=== PATIENT | female | born 1940 | race Caucasian/White ===

== ENCOUNTER 2017-03-03 05:29 | Day surgery (SDC) | payer MEDICARE, OTHER ==
[2017-03-03] VITALS (25 sets, daily range): BP systolic 116–184; BP diastolic 56–105; PULSE 52–65; RESP 12–21; TEMP 95.5–98.6; O2SAT 90–99; Ht 162.6 cm; Wt 93.0 kg
[~2017-03-03] VITALS: Ht 162.6 cm; Wt 93.0 kg
[~2017-03-03 05:29] MED LIST: ATEN100T PO; BUSP10TA3 PO; ENAL5TAB PO; ESOM20CA PO; HYDR25TA PO; INSU100I3 SQ; INSU3INS3 SQ; MV-M1TAB18 PO; PARO-38 PO; SIMV40TA5 PO; TRAZ-170 PO; UBID100C10 PO
--- OUTSIDE RECORDS SUMMARY | 2017-03-03 05:33 | XMS REPORT | CCD ---
Author Author HERMANN DUKE Organization Unknown Address [address], [place] [address] Phone 0 Care Team Providers Care Log Snaker Name Role Phone KIMMY PACHECO, W Attending Physician [phone] Vital Signs Unknown or Not Available. Allergies Allergy Code Allergy Type Reaction Status No Known Drug Allergies 0 No known drug allergies Active Procedures Unknown or Not Available. History of Immunizations Unknown or Not Available. Problems Unknown or Not Available. Results HGB A1C Test Name Code Test Result Test Units Test Date/Time HGB A1C 7.9000 % 05/07/2014 14:05 eAG 180.0000 mg/dL 05/07/2014 14:05 Medications Unknown or Not Available. Medications Administered Unknown or Not Available. Encounters Unknown or Not Available. Social History Smoking Status Code Start Date End Date Never smoker [id number] Patient Decision Aids Unknown or Not Available. Discharge Instructions You were admitted to [facility] on 05/07/2014. You were discharged from [facility] on 05/07/2014. Should you have any questions prior to discharge, please contact a member of your healthcare team. If you have left the hospital and have any questions, please contact your primary care physician. Chief Complaint and Reason For Visit Chief Complaint Date of Onset LAB Function Status Unknown or Not Available. Plan of Care Unknown or Not Available. Referral/Transition of Care Unknown or Not Available.
--- OUTSIDE RECORDS SUMMARY | 2017-03-03 05:33 | XMS REPORT ---
Author Author Srinivasa Lindo Organization [employer] Address Unknown Phone Unavailable Care Team Providers Care Hollow Handle Knife Assembler Name Role Phone Srinivasa Lindo CP Unavailable Allergies No Known Allergies Problems No Known Problems Medications No Known Medications Results No Known Results Summary Purpose [employer] Submission
--- OUTSIDE RECORDS SUMMARY | 2017-03-03 05:33 | XMS REPORT | CCD ---
Author Author HILARIO CORADO Organization Unknown Address [address], [place] [address] Phone 0 Care Team Providers Care Bus Driver Supervisor Name Role Phone Arnold VILLALOBOS Attending Physician 0 Arnold VILLALOBOS Primary Surgeon 0 Vital Signs Vital Sign Value Unit Height 20.2 in Weight Measured 190.5 lbs BMI (Body Mass Index) 28.24 kg/m^2 BSA (Body Surface Area) 1.11 m^2 Allergies Allergy Code Allergy Type Reaction Status No Known Drug Allergies 0 No known drug allergies Active Procedures Unknown. History of Immunizations Unknown. Problems Unknown. Results TROPONIN I (QUANT) Test Name Code Test Result Test Units Test Date/Time TROPONIN I 0.0200 ng /mL 01/05/2014 19:10 Medications Unknown. Medications Administered Unknown. Encounters Unknown. Social History Smoking Status Code Start Date End Date Never smoker [id number] Patient Decision Aids Unknown. Instructions You were admitted to [facility] on 01/05/2014. You had the following tests done: TROPONIN I You were discharged from [facility] on 01/05/2014. Should you have any questions prior to discharge, please contact a member of your healthcare team. If you have left the hospital and have any questions, please contact your primary care physician. Chief Complaint and Reason For Visit Chief Complaint Date of Onset FEELS STRANGE Function Status Unknown. Plan of Care Unknown. Referral/Transition of Care Unknown.
--- OUTSIDE RECORDS SUMMARY | 2017-03-03 05:33 | XMS REPORT | CCD ---
Author Author ALBAN GAVIN Organization Unknown Address [address], [place] [address] Phone 0 Care Team Providers Care Armature Rewinder Name Role Phone Suze ONEAL MD Attending Physician [phone] Vital Signs Unknown or Not Available. Allergies Allergy Code Allergy Type Reaction Status No Known Drug Allergies 0 No known drug allergies Active Procedures Unknown or Not Available. History of Immunizations Unknown or Not Available. Problems Unknown or Not Available. Results INFLUENZA A & B, MOLECULAR - Collect Date/Time: 01/08/2017 09:50 Test Name Code Test Result Test Units Test Ref Range INFLUENZA A NEGATIVE N/A NORMAL: NEGATIVE INFLUENZA B NEGATIVE N/A NORMAL: NEGATIVE Active Medications Unknown or Not Available. Medications Administered During Visit Unknown or Not Available. Encounters Unknown or Not Available. Social History Smoking Status Code Start Date End Date Never smoker [id number] Patient Decision Aids Unknown or Not Available. Discharge Instructions You were admitted to [facility] on 01/08/2017 09:27 You had the following tests done: INFLUENZA A & B, MOLECULAR You were discharged from [facility] on 01/08/2017 09:27 Should you have any questions prior to discharge, please contact a member of your healthcare team. If you have left the hospital and have any questions, please contact your primary care physician. Chief Complaint and Reason For Visit Chief Complaint Date of Onset HEAD COLD Function Status Unknown or Not Available. Plan of Care Unknown or Not Available. Referral/Transition of Care Unknown or Not Available.
--- OUTSIDE RECORDS SUMMARY | 2017-03-03 05:33 | XMS REPORT | CCD ---
Author Author HERMANN DUKE Organization Unknown Address [address] [place], [place] [address] Phone 0 Care Team Providers Care Instrument Installer Name Role Phone ALANNAH GUSTAFSON Attending Physician 0 Vital Signs Unknown or Not Available. Allergies Allergy Code Allergy Type Reaction Status No Known Drug Allergies 0 No known drug allergies Active Procedures Unknown or Not Available. History of Immunizations Unknown or Not Available. Problems Unknown or Not Available. Results HGB A1C - Collect Date/Time: 07/10/2015 10:09 Test Name Code Test Result Test Units Test Ref Range HGB A1C 7.7 % L=4.5 H=6.2 eAG 174 mg/dL Active Medications Unknown or Not Available. Medications Administered During Visit Unknown or Not Available. Encounters Encounter Diagnosis Diagnosis Code Start Date DIABETES W O COMP TYPE 2 UNSPECIFIE 00084 07/10/2015 Social History Smoking Status Code Start Date End Date Never smoker [id number] Patient Decision Aids Unknown or Not Available. Discharge Instructions You were admitted to [facility] on 07/10/2015 with a principal diagnosis of DIABETES W O COMP TYPE 2 UNSPECIFIE. You were discharged from [facility] on 07/10/2015. Should you have any questions prior to discharge, please contact a member of your healthcare team. If you have left the hospital and have any questions, please contact your primary care physician. Chief Complaint and Reason For Visit Unknown or Not Available. Function Status Unknown or Not Available. Plan of Care Unknown or Not Available. Referral/Transition of Care Unknown or Not Available.
--- OUTSIDE RECORDS SUMMARY | 2017-03-03 05:33 | XMS REPORT | CCD ---
Author Author ALBAN GAVIN Organization Unknown Address [address] [place], [place] [address] Phone 0 Care Team Providers Care Natural Remedy Consultant Name Role Phone DAYAN DOWNING Attending Physician [phone] Vital Signs Unknown or Not Available. Allergies Allergy Code Allergy Type Reaction Status No Known Drug Allergies 0 No known drug allergies Active Procedures Unknown or Not Available. History of Immunizations Unknown or Not Available. Problems Unknown or Not Available. Results BASIC METABOLIC - Collect Date/Time: 01/10/2017 15:13 Test Name Code Test Result Test Units Test Ref Range GLUCOSE 102 mg/dL L=70 H=110 BUN 22 mg/dL L=7 H=18 CREATININE 1.16 mg/ dL L=0.60 H=1.30 AGE 76 YEARS GFR 45.5 L=60.0 H=120 SODIUM 139 mmol/L L=136 H=145 POTASSIUM 4.5 mmol/ L L=3.5 H=5.1 CHLORIDE 103 mmol/L L=98 H=107 CO2 27 mmol/L L=21 H=32 CALCIUM 9.2 mg/dL L=8.5 H=10.1 HGB A1C - Collect Date/Time: 01/10/2017 15:13 Test Name Code Test Result Test Units Test Ref Range HGB A1C 6.8 % L=4.5 H=6.2 eAG 148 mg/dL Active Medications Unknown or Not Available. Medications Administered During Visit Unknown or Not Available. Encounters Unknown or Not Available. Social History Smoking Status Code Start Date End Date Never smoker [id number] Patient Decision Aids Unknown or Not Available. Discharge Instructions You were admitted to [facility] on 01/10/2017 15:06 You had the following tests done: BASIC METABOLIC HGB A1C You were discharged from [facility] on 01/10/2017 15:06 Should you have any questions prior to [...]
--- OUTSIDE RECORDS SUMMARY | 2017-03-03 05:33 | XMS REPORT ---
Author Author Srinivasa Lindo Organization [employer] Address Unknown Phone Unavailable Care Team Providers Care Toll Gate Keeper Name Role Phone Srinivasa Lindo CP Unavailable Allergies, Adverse Reactions, Alerts Substance Reaction Event Type N.K.D.A. Info Not Available Non Drug Allergy Problems Problem Type Condition Code Onset Dates Condition Status Assessment Encounter for dental examination and cleaning without abnormal findings Z01.20 Active Medications Medication Code System Code Instructions Start Date End Date Status Dosage Aspirin [facility] [address]-76 not defined Lantus [facility] [address]-60 not defined NovoLog [facility] [address]-41 not defined Vitamin D3 [facility] 65[address] not defined Hydrochlorothiazide [facility] [address]-19 not defined Atenolol [facility] [address]-39 not defined Enalapril Maleate [facility] [address]-71 not defined Paroxetine HCl [facility] [address]-97 not defined Simvastatin [facility] [address]-32 not defined Procedures Procedure Coding System Code Date INTRAORL - CMPL SERIES CODE 41322 CPT-4 D0210 Aug 09, 2016 COMP ORAL EVALUATION - NEW/EST PT CPT-4 D0150 Aug 09, 2016 Results No Known Results Summary Purpose [employer]ClinicalWorks Submission
--- OUTSIDE RECORDS SUMMARY | 2017-03-03 05:33 | XMS REPORT ---
Author Author Srinivasa Lindo Organization [employer] Address Unknown Phone Unavailable Care Team Providers Care Clinical Data Analyst Name Role Phone Srinivasa Lindo CP Unavailable Allergies No Known Allergies Problems Problem Type Condition Code Onset Dates Condition Status Assessment Encounter for dental examination and cleaning without abnormal findings Z01.20 Active Medications Medication Code System Code Instructions Start Date End Date Status Dosage Lantus [facility] [address]-65 not defined NovoLog [facility] [address]-68 not defined Simvastatin [facility] [address]-51 not defined Paroxetine HCl [facility] [address]-03 not defined Atenolol [facility] [address]-31 not defined Aspirin [facility] [address]-48 not defined Vitamin D3 [facility] [address] not defined Hydrochlorothiazide [facility] [address]-96 not defined Enalapril Maleate [facility] [address]-17 not defined Results No Known Results Summary Purpose [employer]ClinicalWorks Submission
--- OUTSIDE RECORDS SUMMARY | 2017-03-03 05:33 | XMS REPORT | CCD ---
Author Author ALBAN GAVIN Organization Unknown Address [address] [place], [place] [address] Phone 0 Care Team Providers Care Telephone Switchboard Operator Name Role Phone DAYAN DOWNING Attending Physician [phone] Vital Signs Unknown or Not Available. Allergies Allergy Code Allergy Type Reaction Status No Known Drug Allergies 0 No known drug allergies Active Procedures Unknown or Not Available. History of Immunizations Unknown or Not Available. Problems Unknown or Not Available. Results COMP METABOLIC - Collect Date/Time: 10/05/2016 10:40 Test Name Code Test Result Test Units Test Ref Range GLUCOSE 144 mg/dL L=70 H=110 BUN 28 mg/dL L=7 H=18 CREATININE 1.35 mg/ dL L=0.60 H=1.30 AGE 76 YEARS GFR 38.2 SODIUM 136 mmol/L L=136 H=145 POTASSIUM 4.7 mmol/ L L=3.5 H=5.1 CHLORIDE 102 mmol/L L=98 H=107 CO2 24 mmol/L L=21 H=32 CALCIUM 9.2 mg/dL L=8.5 H=10.1 AST 18 U/L L=15 H=37 ALT 23 U/L L=12 H=78 ALKALINE PHOS 47 U/ L L=50 H=136 TOTAL PROTEIN 7.5 g/ dL L=6.4 H=8.2 ALBUMIN 4.0 g/dL L=3.4 H=5.0 TOTAL BILI 0.50 mg/ dL L=0.00 H=1.00 HGB A1C - Collect Date/Time: 10/05/2016 10:40 Test Name Code Test Result Test Units Test Ref Range HGB A1C 7.1 % L=4.5 H=6.2 eAG 157 mg/dL LIPID PANEL - Collect Date/Time: 10/05/2016 10:40 Test Name Code Test Result Test Units Test Ref Range CHOLESTEROL 202 mg/ dL L=0 H=200 TRIGLYCERIDES 195 mg /dL L=30 H=150 HDL 51 mg/dL L=50 H=60 LDL, CALC 112 mg/dL L=0 H=100 VLDL 39 mg/dL L=0 H=40 CHOL/HDL RISK 4.0 RATIO L=0.0 H=4.4 PT FASTING: ? N/A MICROALBUMIN/CREATININE RATIO - Collect Date/Time: 10/05/2016 12:15 Test Name Code Test Result Test Units Test Ref Range MICROALBUMIN 1.1 mg/ dL L=0.1 H=2.0 CREAT, URINE 112.9 mg/dL MICROALB/CREAT 9.7 ug/mg L=0.0 H=29.9 Active Medications Unknown or Not Available. Medications Administered During Visit Unknown or Not Available. Encounters Encounter Diagnosis Diagnosis Code Start Date Type 2 diabetes mellitus with hyperglycemia E1165 10/05/2016 Social History Smoking Status Code Start Date End Date Never smoker [id number] Patient Decision Aids Unknown or Not Available. Discharge Instructions You were admitted to [facility] on 10/05/2016 10:32 with a principal diagnosis of Type 2 diabetes mellitus with hyperglycemia You had the following tests done: COMP METABOLIC HGB A1C LIPID PANEL MICROALBUMIN/CREATININE RATIO You were discharged from [facility] on 10/05/2016 10:32 Should you have any questions prior to [...]
--- OUTSIDE RECORDS SUMMARY | 2017-03-03 05:33 | XMS REPORT | CCD ---
Author Author JHONATAN BHANDARI Organization Unknown Address [address] [place], [place] [address] Phone 0 Care Team Providers Care Carpenter Foreman Name Role Phone STACIE BURT Attending Physician [phone] Vital Signs Unknown. Allergies Allergy Code Allergy Type Reaction Status No Known Drug Allergies 0 No known drug allergies Active Procedures Unknown. History of Immunizations Unknown. Problems Unknown. Results MICROALBUMIN/CREATININE RATIO Test Name Code Test Result Test Units Test Date/Time MICROALBUMIN 0.4000 mg/dL 09/19/2013 10:20 MICROALB/CREAT 4.1000 ug/mg 09/19/2013 10:20 CREAT, URINE 98.4000 mg/dL 09/19/2013 10:20 COMP METABOLIC Test Name Code Test Result Test Units Test Date/Time (GFR ESTIMATED PER AGE -- UNDER 18 YRS NOT APPLICABLE) N/A 09/19/2013 10:15 AST 29.0000 U/L 09/19/2013 10:15 COMPREHENSIVE METABOLIC PANEL N/A 09/19/2013 10:15 ALT 30.0000 U/L 09/19/2013 10:15 ALKALINE PHOS 85.0000 U/L 09/19/2013 10:15 ALBUMIN 3.7000 g/dL 09/19/2013 10:15 CO2 25.0000 mmol/L 09/19/2013 10:15 CHLORIDE 103.0000 mmol/L 09/19/2013 10:15 CALCIUM 9.1000 mg/ dL 09/19/2013 10:15 BUN 17.0000 mg/dL 09/19/2013 10:15 TOTAL PROTEIN 7.3000 g/dL 09/19/2013 10:15 TOTAL BILI 0.6000 mg /dL 09/19/2013 10:15 SODIUM 139.0000 mmol /L 09/19/2013 10:15 POTASSIUM 4.2000 mmol/L 09/19/2013 10:15 GLUCOSE 221.0000 mg/ dL 09/19/2013 10:[age]0000 YE[age] 09/19/2013 10:15 GFR 42.8000 09/19/2013 10:15 CREATININE 1.3000 mg /dL 09/19/2013 10:15 *IF MULTIPLY RESULT BY 1.210 N/A 09/19/2013 10:15 GFR INTERPRETATION N/A 09/19/2013 10:15 LOW 30 - 60 mL/min N/A 09/19/2013 10:15 CRITICAL < 30 mL/min N/A 09/19/2013 10:15 NORMAL RANGE > 60 mL/min N/A 09/19/2013 10:15 Medications Unknown. Medications Administered Unknown. Encounters Unknown. Social History Smoking Status Code Start Date End Date Never smoker [id number] Patient Decision Aids Unknown. Instructions You were admitted to [facility] on 09/19/2013. You had the following tests done: AGE ALBUMIN ALKALINE PHOS ALT AST BUN CALCIUM CHLORIDE CO2 CREAT, URINE CREATININE GFR GLUCOSE MICROALB/CREAT MICROALBUMIN POTASSIUM SODIUM TOTAL BILI TOTAL PROTEIN You were discharged from [facility] on 09/19/2013. Should you have any questions prior to discharge, please contact a member of your healthcare team. If you have left the hospital and have any questions, please contact your primary care physician. Chief Complaint and Reason For Visit Chief Complaint Date of Onset LAB Function Status Unknown. Plan of Care Unknown.
--- OUTSIDE RECORDS SUMMARY | 2017-03-03 05:33 | XMS REPORT ---
Author Author Srinivasa Lindo Organization [employer] Address Unknown Phone Unavailable Care Team Providers Care Puff Iron Operator Name Role Phone Srinivasa Lindo CP Unavailable Allergies, Adverse Reactions, Alerts Substance Reaction Event Type N.K.D.A. Info Not Available Non Drug Allergy Problems Problem Type Condition Code Onset Dates Condition Status Assessment Dental caries on pit and fissure surface penetrating into dentin K02.52 Active Medications Medication Code System Code Instructions Start Date End Date Status Dosage Paroxetine HCl [facility] [address]-20 not defined Vitamin D3 [facility] [address] not defined Hydrochlorothiazide [facility] [address]-31 not defined Atenolol [facility] [address]-07 not defined Enalapril Maleate [facility] [address]-31 not defined Aspirin [facility] [address]-22 not defined NovoLog [facility] [address]-45 not defined Simvastatin [facility] [address]-59 not defined Lantus [facility] [address]-39 not defined Procedures Procedure Coding System Code Date AMALGAM-TWO SURFACES PRIMARY/PERM CPT-4 D2150 Sep 01, 2016 Results No Known Results Summary Purpose eClinicalWorks Submission
--- OUTSIDE RECORDS SUMMARY | 2017-03-03 05:33 | XMS REPORT | CCD ---
Author Author ALBAN GAVIN Organization Unknown Address [address] [place], [place] [address] Phone 0 Care Team Providers Care Cable Technician Name Role Phone FARIBA DOWNINGOTHY Attending Physician [phone] Vital Signs Unknown or Not Available. Allergies Allergy Code Allergy Type Reaction Status No Known Drug Allergies 0 No known drug allergies Active Procedures Unknown or Not Available. History of Immunizations Unknown or Not Available. Problems Unknown or Not Available. Results BASIC METABOLIC - Collect Date/Time: 03/31/2016 08:20 Test Name Code Test Result Test Units Test Ref Range GLUCOSE 229 mg/dL L=70 H=110 BUN 25 mg/dL L=7 H=18 CREATININE 1.35 mg/ dL L=0.60 H=1.30 AGE 76 YEARS GFR 38.2 SODIUM 138 mmol/L L=136 H=145 POTASSIUM 4.3 mmol/ L L=3.5 H=5.1 CHLORIDE 100 mmol/L L=98 H=107 CO2 28 mmol/L L=21 H=32 CALCIUM 9.4 mg/dL L=8.5 H=10.1 HGB A1C - Collect Date/Time: 03/31/2016 08:20 Test Name Code Test Result Test Units Test Ref Range HGB A1C 9.4 % L=4.5 H=6.2 eAG 223 mg/dL Active Medications Unknown or Not Available. Medications Administered During Visit Unknown or Not Available. Encounters Encounter Diagnosis Diagnosis Code Start Date Type 2 diabetes mellitus without complications E119 03/31/2016 Social History Smoking Status Code Start Date End Date Never smoker [id number] Patient Decision Aids Unknown or Not Available. Discharge Instructions You were admitted to [facility] on 03/31/2016 08:15 with a principal diagnosis of Type 2 diabetes mellitus without complications You had the following tests done: BASIC METABOLIC HGB A1C You were discharged from [facility] on 03/31/2016 08:15 Should you have any questions prior to [...]
--- OUTSIDE RECORDS SUMMARY | 2017-03-03 05:33 | XMS REPORT | Continuity of Care Document ---
Demographics Preferred Language Unknown Marital Status Unknown Mu-Ism Affiliation Unknown Race Unknown Ethnic Group Unknown Author Author [facility] Organization [facility] Address Unknown Phone Unavailable Allergies Medications Problems Procedures Results Encounters ACCT No. Visit Date/Time Discharge Status Pt. Type Provider Facility Loc./Unit Complaint [id number] 01/21/2017 07:43:00 ACT Unknown [id number] 01/13/2017 15:11:00 ACT Unknown [id number] 11/09/2016 08:54:00 ACT Unknown [id number] 10/04/2016 13:54:00 ACT Unknown [id number] 04/15/2016 10:26:00 ACT Unknown [id number] 02/09/2016 07:43:00 ACT Unknown [id number] 12/24/2014 08:06:00 ACT Unknown [id number] 06/06/2014 08:54:00 ACT Unknown [id number] 04/09/2014 10:08:00 ACT Unknown [id number] 01/07/2014 11:48:00 ACT Unknown [id number] 09/21/2013 10:23:00 ACT Unknown
--- OUTSIDE RECORDS SUMMARY | 2017-03-03 05:33 | XMS REPORT ---
Author Author Srinivasa Lindo Organization [employer] Address Unknown Phone Unavailable Care Team Providers Care Tamale Machine Feeder Name Role Phone Srinivasa Lindo CP Unavailable Allergies No Known Allergies Problems Problem Type Condition Code Onset Dates Condition Status Assessment Dental caries, unspecified K02.9 Active Medications Medication Code System Code Instructions Start Date End Date Status Dosage Simvastatin [facility] [address]-27 not defined Vitamin D3 [facility] [address] not defined Aspirin [facility] [address]-02 not [address] [facility] [address]-04 not defined Enalapril Maleate [facility] [address]-[address] [facility] [address]-[address] [facility] [address]-[address] not [address] [facility] [address]-[address] [facility] [address]-87 not defined Procedures Procedure Coding System Code Date EXTRAC ERUPTED TOOTH/EXPOSED ROOT CPT-4 D7140 Sep 08, 2016 Vital Signs Date/Time: Sep 08, 2016 Blood Pressure Diastolic 63 mm Hg Blood Pressure Systolic 130 mm Hg Cardiac Monitoring Heart Rate 59 /min Results No Known Results Summary Purpose [employer]ClinicalWorks Submission
--- OUTSIDE RECORDS SUMMARY | 2017-03-03 05:33 | XMS REPORT | CCD ---
Author Author HERMANN DUKE Organization Unknown Address [address] [place], [place] [address] Phone 0 Care Team Providers Care Tank Car Reconditioner Name Role Phone KIMMY PACHECO, W Attending Physician [phone] Vital Signs Unknown. Allergies Allergy Code Allergy Type Reaction Status No Known Drug Allergies 0 No known drug allergies Active Procedures Unknown. History of Immunizations Unknown. Problems Unknown. Results Unknown. Medications Unknown. Medications Administered Unknown. Encounters Unknown. Social History Smoking Status Code Start Date End Date Never smoker [id number] Patient Decision Aids Unknown. Instructions You were admitted to [facility] on 04/08/2014. You were discharged from [facility] on 04/08/2014. Should you have any questions prior to discharge, please contact a member of your healthcare team. If you have left the hospital and have any questions, please contact your primary care physician. Chief Complaint and Reason For Visit Chief Complaint Date of Onset MM BILAT SCREEN Function Status Unknown. Plan of Care Unknown. Referral/Transition of Care Unknown.
--- OUTSIDE RECORDS SUMMARY | 2017-03-03 05:33 | XMS REPORT | CCD ---
Author Author HERMANN DUKE Organization Unknown Address [address], [place] [id number] Phone 0 Care Team Providers Care Portable Sawmill Operator Name Role Phone ALANNAH GUSTAFSON Attending Physician 0 Vital Signs Unknown or Not Available. Allergies Allergy Code Allergy Type Reaction Status No Known Drug Allergies 0 No known drug allergies Active Procedures Unknown or Not Available. History of Immunizations Unknown or Not Available. Problems Unknown or Not Available. Results COMP METABOLIC - Collect Date/Time: 11/15/2014 15:25 Test Name Code Test Result Test Units Test Ref Range GLUCOSE 232 mg/dL L=70 H=110 BUN 25 mg/dL L=7 H=18 CREATININE 1.40 mg/ dL L=0.60 H=1.30 AGE 74 YEARS GFR 39.2 SODIUM 139 mmol/L L=136 H=145 POTASSIUM 4.2 mmol/ L L=3.5 H=5.1 CHLORIDE 102 mmol/L L=98 H=107 CO2 28 mmol/L L=21 H=32 CALCIUM 9.1 mg/dL L=8.5 H=10.1 AST 18 U/L L=15 H=37 ALT 27 U/L L=12 H=78 ALKALINE PHOS 68 U/ L L=50 H=136 TOTAL PROTEIN 7.6 g/ dL L=6.4 H=8.2 ALBUMIN 3.9 g/dL L=3.4 H=5.0 TOTAL BILI 0.40 mg/ dL L=0.00 H=1.00 HGB A1C - Collect Date/Time: 11/15/2014 15:25 Test Name Code Test Result Test Units Test Ref Range HGB A1C 8.6 % L=4.5 H=6.2 eAG 200 mg/dL LIPID PANEL - Collect Date/Time: 11/15/2014 15:25 Test Name Code Test Result Test Units Test Ref Range CHOLESTEROL 143 mg/ dL L=0 H=200 TRIGLYCERIDES 389 mg /dL L=30 H=150 HDL 36 mg/dL L=50 H=60 LDL, CALC 29 mg/dL L=0 H=100 VLDL 78 mg/dL L=0 H=40 CHOL/HDL RISK 4.0 RATIO L=0.0 H=4.4 PT FASTING: NO N/A MICROALBUMIN/CREATININE RATIO - Collect Date/Time: 11/15/2014 15:30 Test Name Code Test Result Test Units Test Ref Range MICROALBUMIN 2.7 mg/ dL L=0.1 H=2.0 CREAT, URINE 117.8 mg/dL MICROALB/CREAT 22.9 ug/mg L=0.0 H=29.9 Active Medications Unknown or Not Available. Medications Administered During Visit Unknown or Not Available. Encounters Encounter Diagnosis Diagnosis Code Start Date DIABETES W O COMP TYPE 2 UNSPECIFIE 21476 11/15/2014 Social History Smoking Status Code Start Date End Date Never smoker [id number] Patient Decision Aids Unknown or Not Available. Discharge Instructions You were admitted to [facility] on 11/15/2014 with a principal diagnosis of DIABETES W O COMP TYPE 2 UNSPECIFIE. You were discharged from [facility] on 11/15/2014. Should you have any questions prior to [...]
--- OUTSIDE RECORDS SUMMARY | 2017-03-03 05:34 | XMS REPORT | CCD ---
Author Author ALBAN GAVIN Organization Unknown Address [address], [place] [id number] Phone 0 Care Team Providers Care Program Technician Name Role Phone ALANNAH GUSTAFSON Attending Physician 0 Vital Signs Unknown or Not Available. Allergies Allergy Code Allergy Type Reaction Status No Known Drug Allergies 0 No known drug allergies Active Procedures Unknown or Not Available. History of Immunizations Unknown or Not Available. Problems Unknown or Not Available. Results BASIC METABOLIC - Collect Date/Time: 01/15/2016 10:08 Test Name Code Test Result Test Units Test Ref Range GLUCOSE 193 mg/dL L=70 H=110 BUN 20 mg/dL L=7 H=18 CREATININE 1.30 mg/ dL L=0.60 H=1.30 AGE 75 YEARS GFR 42.6 SODIUM 138 mmol/L L=136 H=145 POTASSIUM 4.2 mmol/ L L=3.5 H=5.1 CHLORIDE 102 mmol/L L=98 H=107 CO2 25 mmol/L L=21 H=32 CALCIUM 8.9 mg/dL L=8.5 H=10.1 HGB A1C - Collect Date/Time: 01/15/2016 10:08 Test Name Code Test Result Test Units Test Ref Range HGB A1C 8.3 % L=4.5 H=6.2 eAG 192 mg/dL Active Medications Unknown or Not Available. Medications Administered During Visit Unknown or Not Available. Encounters Encounter Diagnosis Diagnosis Code Start Date Type 2 diabetes mellitus with hyperglycemia E1165 01/15/2016 Social History Smoking Status Code Start Date End Date Never smoker [id number] Patient Decision Aids Unknown or Not Available. Discharge Instructions You were admitted to [facility] on 01/15/2016 09:53 with a principal diagnosis of Type 2 diabetes mellitus with hyperglycemia You had the following tests done: BASIC METABOLIC HGB A1C You were discharged from [facility] on 01/15/2016 09:53 Should you have any questions prior to [...]
--- OUTSIDE RECORDS SUMMARY | 2017-03-03 05:34 | XMS REPORT | CCD ---
Author Author ALBAN GAVIN Organization Unknown Address [address], [place] [id number] Phone 0 Care Team Providers Care Test And Balance Engineer Name Role Phone Sb MARTÍNEZ Attending Physician 0 Vital Signs Unknown or Not Available. Allergies Allergy Code Allergy Type Reaction Status No Known Drug Allergies 0 No known drug allergies Active Procedures Unknown or Not Available. History of Immunizations Unknown or Not Available. Problems Unknown or Not Available. Results Unknown or Not Available. Active Medications Unknown or Not Available. Medications Administered During Visit Unknown or Not Available. Encounters Encounter Diagnosis Diagnosis Code Start Date Pain in right knee V17674 07/30/2016 Social History Smoking Status Code Start Date End Date Never smoker [id number] Patient Decision Aids Unknown or Not Available. Discharge Instructions You were admitted to [facility] on 07/30/2016 15:16 with a principal diagnosis of Pain in right knee You were discharged from [facility] on 07/30/2016 15:16 Should you have any questions prior to discharge, please contact a member of your healthcare team. If you have left the hospital and have any questions, please contact your primary care physician. Chief Complaint and Reason For Visit Chief Complaint Date of Onset RT KNEE XRAY Function Status Unknown or Not Available. Plan of Care Unknown or Not Available. Referral/Transition of Care Unknown or Not Available.
--- OUTSIDE RECORDS SUMMARY | 2017-03-03 05:34 | XMS REPORT ---
Author Author Srinivasa Lindo Organization [employer] Address Unknown Phone Unavailable Care Team Providers Care Seo Executive Name Role Phone Srinivasa Lindo CP Unavailable Allergies No Known Allergies Problems Problem Type Condition Code Onset Dates Condition Status Assessment Dental caries on pit and fissure surface penetrating into dentin K02.52 Active Medications Medication Code System Code Instructions Start Date End Date Status Dosage Atenolol [facility] [address]-67 not defined Aspirin [facility] [address]-31 not defined NovoLog [facility] [address]-21 not defined Enalapril Maleate [facility] [address]-53 not defined Paroxetine HCl [facility] [address]-17 not defined Vitamin D3 [facility] [address] not defined Hydrochlorothiazide [facility] [address]-85 not defined Lantus [facility] [address]-29 not defined Simvastatin [facility] [address]-24 not defined Procedures Procedure Coding System Code Date RESIN COMPOS - 2 SURFACES ANTERIOR CPT-4 D2331 Aug 25, 2016 RESIN COMPOS - 2 SURFACES ANTERIOR CPT-4 D2331 Aug 25, 2016 RESIN COMPOS - 2 SURFACES POSTERIOR CPT-4 D2392 Aug 25, 2016 Results No Known Results Summary Purpose [employer] Submission
[2017-03-03] MEDS ORDERED: FAMOTIDINE 20mg IVPB 50 ML IV ONE (06:00)
[2017-03-03] MEDS ORDERED: METOCLOPRAMIDE 10mg/2ml INJECTION IV ONE (06:00)
[2017-03-03] MEDS ORDERED: CEFAZOLIN 2 GM VIAL IV ONE (06:00)
[2017-03-03] MEDS ORDERED: LIDOCAINE 1% (10mg/ml) 2ml SDV ID ONE (06:00)
[2017-03-03 06:15] LABS: BASOPHILS # (AUTO) 0.1 T/MM3 (0-0.2); BASOPHILS % (AUTO) 1.8 % (0-2); EOSINOPHILS # (AUTO) 0.3 T/MM3 (0-0.5); EOSINOPHILS % (AUTO) 3.6 % (0-4); HCT - HEMATOCRIT 39.5 % (36-46); HGB - HEMOGLOBIN 13.1 GM/DL (12-16); IMMATURE GRANULOCYTE # (AUTO) 0.05 T/MM3 (0.00-0.03); IMMATURE GRANULOCYTE % (AUTO) 0.6 % (0.0-0.5); LYMPHOCYTES # (AUTO) 3.5 T/MM3 (1-4.8); LYMPHOCYTES % (AUTO) 45.7 % (23-45); MEAN CORPUSCULAR HGB 30.9 UUG (26-34); MEAN CORPUSCULAR HGB CONC(MCHC 33.2 GM/DL (31-37); MEAN CORPUSCULAR VOLUME 93.2 UM3 (80-100); MONOCYTES # (AUTO) 0.8 T/MM3 (0-0.8); MONOCYTES % (AUTO) 10.2 % (0-9.0); NEUTROPHILS #(AUTO)-ABSOLUTE 2.9 T/MM3 (1.8-7.7); NEUTROPHILS % (AUTO) 38.1 % (33-66); RED BLOOD COUNT 4.24 M/MM3 (4.00-5.20); WBC - WHITE BLOOD COUNT 7.7 T/MM3 (4.5-11.0)
[2017-03-03 06:24] LABS: ALBUMIN 4.1 G/DL (3.5-5.0); ALBUMIN/GLOBULIN RATIO 1.2 RATIO (1.1-2.2); ALKALINE PHOSPHATASE 56 U/L (38-126); ALT (SGPT) 36 U/L (9-52); ANION GAP 18 MEQ/L (5-15); AST (SGOT) 30 U/L (14-36); BUN/CREATININE RATIO 25 RATIO (6-26); CALCIUM 9.8 MG/DL (8.4-10.2); CHLORIDE 100 MEQ/L (98-107); CO2 - CARBON DIOXIDE 24 MEQ/L (22-30); CREATININE 1.2 MG/DL (0.7-1.2); GLOMERULAR FILTRATION RATE 44; GLUCOSE 210 MG/DL (65-110); POTASSIUM 4.8 MEQ/L (3.6-5); SODIUM 142 MEQ/L (134-144); TOTAL PROTEIN 7.5 G/DL (6.3-8.2)
--- NOTE | 2017-03-03 06:39 | ANESPREOP ---
Anesthesia Record Date and Time DATE: 03/03/17 TIME: 06:36 Proposed Surgical Procedure RT PKA VS TKA Allergies: Coded Allergies: insulin detemir (Verified Allergy, Unknown, SKIN RASH, 01/26/17) niacin (Verified Allergy, Unknown, RASH, 02/24/17) Ht/Wt/BMI Height: 5 ' 4.00 " Weight: 86.500 kg BMI: 32.7 kg/m2 Vital Signs Date Time Temp Pulse Resp B/P Pulse Ox O2 Delivery O2 Flow Rate FiO2 03/03/17 06:12 63 16 03/03/17 05:57 98.6 184/83 94 Room Air Medications Inpatient Medications Current Medications Medications (Trade) Dose Ordered Sig/Ellie Start Time Stop Time Status Last Admin Dose Admin Lactated Ringer's (Lactated Ringers) 1,000 ml @ 50 mls/hr Q20H PRN 03/03/17 07:00 03/03/17 07:00 DC Atenolol (Atenolol) 100 Mg Tablet, 1 TAB PO DAILY, (Reported) Last Taken: on 03/03/17 0430 Buspirone HCl (Buspirone HCl) 10 Mg Tablet, 0.5 TAB PO DAILY, (Reported) Last Taken: on 03/02/17 0800 Enalapril Maleate (Enalapril Maleate) 5 Mg Tablet, 2 TAB PO DAILY, (Reported) Last Taken: on 03/02/17 0800 Esomeprazole Mag Trihydrate (Nexium) 20 Mg Capsule, 1 TAB PO DAILY PRN for ACID REFLUX, (Reported) Last Taken: on 03/03/17 0430 Hydrochlorothiazide (Hydrochlorothiazide) 25 Mg Tablet, 1 TAB PO DAILY, (Reported) Last Taken: on 03/02/17 0800 Insulin Aspart (Novolog Flexpen) 1 Unit Pen, 18 UNIT SQ AC, (Reported) Last Taken: on 03/02/17 1800 Insulin Glargine,Hum.rec.anlog (Lantus Solostar ) 1 Unit Pen, 45 UNIT SQ HS, (Reported) Last Taken: on 03/02/17 2200 Paroxetine HCl (Paroxetine HCl) 20 Mg Tablet, 1 TAB PO DAILY, (Reported) Last Taken: on 03/02/17 0800 Simvastatin (Simvastatin) 40 Mg Tablet, 1 TAB PO HS, (Reported) Last Taken: on 02/28/17 Trazodone HCl (Trazodone HCl) 50 Mg Tablet, 1 TAB PO HS, (Reported) Last Taken: on 03/02/17 2200 Ubidecarenone (Coq-10) 100 Mg Capsule, 1 CAP PO HS, (Reported) Last Taken: on 03/01/17 Currently on Beta Marcelina: Yes Beta Marcelina Last Taken: 03/03/14 0430 Medical/Surgical History Anesthesia PMH: Reports: *Diabetes, *Hypertension (ON MEDS), Arthritis (RT KNEE ), Obesity, Reflux (ON MEDS), Valvular Disease (Mitral valve prolapse per pt) Smoking Status: Never smoker HX of Last Menstrual Period: HYST Past Surgical History Orthopedic Surgeries: Abdominal Surgeries: Genitourinary Surgeries: Cardiac Surgeries: Endocrine Surgeries: Reproductive Surgeries: Yes - PURVI/BSO; RT BREAST BIOPSY Neurological Surgeries: Ear Surgeries: Nose Surgeries: Throat Surgeries: Other Surgeries: Yes - COLONOSCOPY Pertinent Findings Laboratory Tests 03/03/17 06:07 EKG Rhythm: Sinus Rhythm Physical Exam Respiratory: Bilat breath sounds equal, Lungs clear Cardiovascular: FOUND Regular rate, rhythm Airway Assessment Mallampati Score: III TMD: 3 Fingerbreadths Neck Extension: Good ASA: 3 Plan Regional: Spinal Discussion Discussed risks/options/alternatives of anesthesia and questions answered. Patient consents. Nursing pain assessment noted. Attestation Statement Prior to the delivery of any anesthetic medication, I examined the patient, developed the plan, obtained the patient's consent and discussed the risk and benefits of the procedure with the patient/guardian. PEÑA LYNN Mar 03, 2017 06:39
[2017-03-03] MEDS ORDERED: VANCOMYCIN 1 GRAM INJECTION ONE (06:56)
[2017-03-03] MEDS ORDERED: ONDANSETRON 4mg/2ml INJECTION IV ONE (07:00)
[2017-03-03] MEDS ORDERED: NOZIN NASAL SWAB NS ONE ×2 (07:00→09:30)
[2017-03-03] MEDS ORDERED: NORMAL SALINE 1,000 ML IV ONE (07:00)
[2017-03-03] MEDS ORDERED: LR 1,000 ML IV PRN (07:00)
[2017-03-03] MEDS ORDERED: ACETAMINOPHEN 500 MG TABLET PO ONE (07:00)
[2017-03-03] MEDS ORDERED: MIDAZOLAM 2mg/2ml INJECTION ONE (07:03)
[2017-03-03] MEDS ORDERED: PROPOFOL 500mg 50 ML IV ONE ×2 (07:04→08:13)
[2017-03-03] MEDS ORDERED: ROPIVACAINE 0.5% (5mg/ml) 30ml INJ ONE (07:21)
[2017-03-03] MEDS ORDERED: TRANEXAMIC ACID 1,000 MG in NORMAL SALINE 100 ML IV ONE ×2 (07:30→08:30)
[2017-03-03] MEDS ORDERED: HYDROMORPHONE 2mg/ml INJECTION IV PRN ×2 (08:00)
[2017-03-03] MEDS ORDERED: EPINEPHRINE 0.25 MG, BUPIVACAINE 0.25% 75 MG, MORPHINE SULFATE 15 MG, KETOROLAC 60 MG i... INJ ONE ×5 (08:30)
[2017-03-03] MEDS ORDERED: PROPOFOL 200mg 40 ML IV ONE (09:10)
--- NOTE | 2017-03-03 09:19 | PDOPERATE ---
Operative Report Date of Operation 03/03/17 Side: Right Preoperative Diagnosis: knee primary DJD Postoperative Diagnosis Same as preoperative diagnosis. Operation/Procedure: medial partial knee replacement (right) Surgeon Trina Phelan MD Chemical Pumper CJ Garay Complications None. Regional Block: Spinal Estimated Blood Loss See Anesthesia Record. Fluids Please See Anesthesia Record. Description of Operation Ms. Mercado and her right knee were identified and marked in the the preoperative holding area. She was then brought back to the operating suite and proper anesthesia was administered. She was then positioned supine on the operating table. The right lower extremity was then prepped and draped in my normal sterile fashion. Timeout was performed with all operating room personnel. The leg was exsanguinated and tourniquet inflated to 250 mmHg. A medial approach along the medial border of the patellar tendon was utilized sharp dissection was carried down through the skin and subcutaneous tissue a capsulotomy was performed. Inspection of the cartilage revealed anterior medial osteoarthritis which spared the patellofemoral and lateral compartments. Osteotome was used to remove intracondylar notch osteophytes as well as medial femoral condyle osteophytes. A small spoon was placed followed by the tibial cutting guide and a 4G clamp. Vertical and horizontal cuts were made in the tibia and the tibial cut removed. A IM guide was then placed into the femur and the femoral resection guide was placed along the center of the medial femoral condyle. 4 holes were drilled and the guide was then removed. We reamed with a 0 peg. Flexion extension gaps were then checked and we redrilled with a 3 peg. This was still tight in extension so we re-reamed with a 4 peg. This gave us good balance the femur was then prepared by removing posterior osteophytes and removing for anterior impingement. Trial components were placed with a 5 spacer and this felt good. Bone wasn't prepared for cementing and components were cemented into place and allowed to cure in 45 of flexion. Betadine solution was used during the curing period and then the tourniquet was let down and hemostasis was obtained with electrocautery. After the cement had cured I then trialed with a 5 and a 6 spacer the 6 felt excellent so final size 6 spacer was placed. Thorough irrigation was performed followed by 1 g vancomycin powder the capsulotomy was repaired with #1 Vicryl. The left my phys assistant to close subcutaneous tissue 2-0 Vicryl followed by running 4-0 Monocryl in the skin and Dermabond and a sterile dressing. She'll be taken back to recovery room in the care of anesthesia. JANEL PHELAN MD Mar 03, 2017 09:19
--- NOTE | 2017-03-03 09:19 | ANESPD ---
Peripheral Nerve Blockade Physician: Fidencio Phelan MD Date: 03/03/17 Surgical Procedure: Partial right total knee Discussion Discussed risks/options/alternatives of anesthesia and questions answered. Patient consents. Nursing pain assessment noted. Block Start: 09:37 Block Stop: 09:41 Block Employed: Adductor Canal, Single Injection Indication: post-operative pain Approach: right side confirmed Position: supine Patient: Consent, risks/benefits discussed, Informed, post block act. discussed Monitors: EKG, SpO2, NIBP IV Sedation: No Initial Vital Signs First Documented Vital Signs Date Time Temp Pulse Resp B/P Pulse Ox O2 Delivery O2 Flow Rate FiO2 03/03/17 05:57 98.6 63 14 184/83 94 Room Air Post Vital Signs Vital Signs Date Time Temp Pulse Resp B/P Pulse Ox O2 Delivery O2 Flow Rate FiO2 03/03/17 06:12 63 16 03/03/17 05:57 98.6 184/83 94 Room Air Initial Pain Score: 0 Post Block Score: 0 Prep: chlorhexadine/ETOH Ultrasound Used?: Yes (see ultrasound image in EMR) Injectate Ropivacaine (%): .5 Ropivacaine (mL): 20 Was Epi 1:200,000 Used?: No Injection Injection made incrementally with constant monitoring and aspiration every 5 ml. PEÑA LYNN Mar 03, 2017 09:19
[2017-03-03] MEDS ORDERED: SENNOSIDES 8.6 MG PO PRN (09:30)
[2017-03-03] MEDS ORDERED: PRN ORDERS MC (09:30)
[2017-03-03] MEDS ORDERED: PANTOPRAZOLE 20 MG TABLET PO PRN (09:30)
[2017-03-03] MEDS ORDERED: DiphenhydrAMINE 25 MG CAPSULE PO PRN (09:30)
[2017-03-03] MEDS ORDERED: LORAZEPAM 1 MG TABLET PO PRN (09:30)
[2017-03-03] MEDS ORDERED: ONDANSETRON 4mg/2ml INJECTION IV PRN (09:30)
[2017-03-03] MEDS ORDERED: METOCLOPRAMIDE 10mg/2ml INJECTION IV PRN (09:30)
[2017-03-03] MEDS ORDERED: DiphenhydrAMINE 50 MG/ML INJECTION IV PRN (09:30)
[2017-03-03] MEDS: NORMAL SALINE 1,000 ML IV SCH ×2 (10:15→15:57)
--- NOTE | 2017-03-03 10:30 | ANESPO ---
Post-Op Note Date 03/03/17 Time: 10:29 Status Pt Participated in Evaluation: Pt participated in person Vital Signs Date Time Temp Pulse Resp B/P Pulse Ox O2 Delivery O2 Flow Rate FiO2 03/03/17 10:05 56 21 123/63 93 Room Air 03/03/17 09:40 6.00 03/03/17 09:35 97.3 Respiratory Function: Airway patent Cardiovascular Function: Regular pulse Telemetry Pattern: SR Mental Status: Alert/oriented Pain Level Intensity: 0 Unable to Assess Pain Due To: intra op Hydration: IV infusing Complications during Recovery None apparent Follow-Up Instructions Instructions Per Surgeon ELIAN GLASER CRNA Mar 03, 2017 10:30
[2017-03-03] MEDS: ACETAMINOPHEN 325 MG PO SCH ×3 (13:04→22:10)
[2017-03-03] MEDS: NOZIN NASAL SWAB NS SCH ×2 (13:04→22:13)
--- NOTE | 2017-03-03 14:23 | DI ---
Indication: ITS.REASON: POSTOP right knee replacement PROCEDURE: KNEE RIGHT 2 VIEW: Encounter: Initial Comparison: None Findings: Two fluoroscopic spot images are submitted for interpretation. Images show a medial unicompartmental hemiarthroplasty without evidence of loosening or failure. No acute fracture seen. Impression: Fluoroscopy as above. Fluoroscopy time is 2 seconds. .
[2017-03-03] MEDS: INSULIN ASPART 100 UNIT/ML SQ PRN (14:28)
[2017-03-03] MEDS: CEFAZOLIN 2 G in NORMAL SALINE 100 ML IV SCH ×2 (15:57→22:14)
[2017-03-03] MEDS ORDERED: SENNOSIDES 8.6 MG PO SCH (22:00)
[2017-03-03] MEDS ORDERED: TRAZODONE 50 MG TABLET PO SCH (22:00)
[2017-03-03] MEDS ORDERED: SIMVASTATIN 40 MG TABLET PO SCH (22:00)
[2017-03-03] MEDS ORDERED: INSULIN GLARGINE 100 UNIT/ML SQ SCH (22:00)
[2017-03-03] MEDS ORDERED: COENZYME Q10 200 MG TABLET PO SCH (22:00)
[2017-03-03] MEDS: ASPIRIN 325 MG PO SCH (22:09)
[2017-03-04 01:13] VITALS: BP 137/67; PULSE 68; RESP 16; TEMP 96.6; O2SAT 92
[2017-03-04 04:00] VITALS: BP 129/64; PULSE 89; RESP 16; TEMP 97; O2SAT 96
[2017-03-04] MEDS: TRAMADOL 50 MG TABLET PO PRN ×3 (05:22→09:38)
[2017-03-04] MEDS: NOZIN NASAL SWAB NS SCH ×2 (05:22→14:27)
[2017-03-04 05:39] LABS: HCT - HEMATOCRIT 33.8 % (36-46); MEAN CORPUSCULAR HGB 31.1 UUG (26-34); MEAN CORPUSCULAR HGB CONC(MCHC 32.5 GM/DL (31-37); MEAN CORPUSCULAR VOLUME 95.5 UM3 (80-100); MEAN PLATELET VOLUME 10.9 UM3 (9.4-12.4); RED BLOOD COUNT 3.54 M/MM3 (4.00-5.20); WBC - WHITE BLOOD COUNT 8.3 T/MM3 (4.5-11.0)
[2017-03-04 05:50] LABS: ANION GAP 11 MEQ/L (5-15); BUN/CREATININE RATIO 21 RATIO (6-26); CALCIUM 8.9 MG/DL (8.4-10.2); CHLORIDE 107 MEQ/L (98-107); CO2 - CARBON DIOXIDE 24 MEQ/L (22-30); CREATININE 1.4 MG/DL (0.7-1.2); GLOMERULAR FILTRATION RATE 37; GLUCOSE 184 MG/DL (65-110); POTASSIUM 4.8 MEQ/L (3.6-5); SODIUM 142 MEQ/L (134-144)
[2017-03-04] MEDS: INSULIN ASPART 100 UNIT/ML SQ PRN (06:10)
[2017-03-04 07:58] VITALS: BP 152/66; PULSE 61; RESP 16; TEMP 97; O2SAT 92
[2017-03-04] MEDS ORDERED: HYDROCHLOROTHIAZIDE 25 MG PO SCH (08:00)
--- NOTE | 2017-03-04 08:00 | PDORTHOPN ---
Subjective Date DATE: 03/04/17 TIME: 07:50 Subjective Kera is doing very well. Pain level is a "3". Denies any breathing issues. No CP. Expects to discharge later today. IV leaked last night and she didn't get as much fluid. Her creat went up from 1.2 to 1.4 No other concerns. Objective Vital Signs Vital signs Vital Signs 03/03/17 03/03/17 03/04/17 03/04/17 22:05 23:00 01:13 04:00 Temp 96.6 97.0 Pulse 63 63 68 89 Resp 16 16 16 16 B/P 137/67 129/64 Pulse Ox 90 92 92 96 O2 Delivery Room Air Room Air Room Air Room Air 03/04/17 07:58 Temp 97.0 Pulse 61 Resp 16 B/P 152/66 Pulse Ox 92 O2 Delivery Room Air Height (Feet): 5 Height (Inches): 4.00 Weight (Kilograms): 93.000 General General Appearance: Alert, No Acute Distress Respiratory (Brief) Respiratory Brief: FOUND: non-labored Cardiovascular (Brief) Cardiac: FOUND: calf easily compressible, calf soft, nontender, pedal pulses intact Surgical Site Incision: FOUND: Mepilex dressing intact, no drainage Neurologic (Brief) Neurological Brief: FOUND: extremities w/o deficits, neuro intact Psychiatric (Brief) Psychiatric Brief: FOUND: alert, no acute distress Laboratory Laboratory Laboratory Tests 03/03/17 06:07 03/04/17 05:10 Laboratory Tests 03/03/17 06:07 03/04/17 05:10 Assessment & Plan Problems: (1) Degenerative arthritis of right knee Status: Chronic Qualifiers: Osteoarthritis type: primary Qualified Codes: M17.11 - Unilateral primary osteoarthritis, right knee Assessment & Plan: Aspirin protocol for VTE prophylaxis. SCD's. PT/OT services to improve independent function. Discharge Planning per Case Management. (2) Chronic kidney disease (CKD) Qualifiers: Chronic kidney disease stage: stage 3 (moderate) Qualified Codes: N18.3 - Chronic kidney disease, stage 3 (moderate) Assessment & Plan: Slight increase in creat with lack of IVF / intake. Will give a bolus this AM. Avoid use of NSAIDs. Recheck labs for trends before discharge. (3) DMII (diabetes mellitus, type 2) Status: Chronic Assessment & Plan: Resume her normal insulin schedule Hospital Course Summary Disclaimer The visit summary below is not to be considered part of the above Progress Note. MARK KEN Mar 04, 2017 07:53
[2017-03-04 08:15] VITALS: PULSE 61
[2017-03-04] MEDS ORDERED: NORMAL SALINE 500 ML IV SCH ×2 (08:15)
[2017-03-04] MEDS: INSULIN ASPART 100 UNIT/ML SQ SCH ×2 (08:49→12:57)
[2017-03-04] MEDS ORDERED: ATENOLOL 100 MG PO SCH (09:00)
[2017-03-04] MEDS ORDERED: [UNRECOGNIZED DRUG - OTHER] PO SCH (09:00)
[2017-03-04] MEDS ORDERED: ENALAPRIL 10 MG PO SCH (09:00)
[2017-03-04] MEDS ORDERED: PAROXETINE 20 MG PO SCH (09:00)
[2017-03-04] MEDS ORDERED: POM DOCUSATE SODIUM 100 MG CAPSULE PO SCH (09:00)
[2017-03-04] MEDS ORDERED: ASPI-917 PO (09:06)
[2017-03-04] MEDS ORDERED: TRAM50TA53 PO (09:06)
[2017-03-04] MEDS ORDERED: POLY17PO18 PO (09:06)
[2017-03-04] MEDS ORDERED: ACET-2321 PO (09:06)
[2017-03-04] MEDS: ACETAMINOPHEN 325 MG PO SCH ×2 (10:57→14:23)
[2017-03-04] MEDS ORDERED: INSULIN ASPART 100 UNIT/ML SQ SCH (11:30)
[2017-03-04] MEDS ORDERED: OXYCODONE I.R. 5 MG TABLET PO PRN (11:45)
[2017-03-04 12:08] VITALS: BP 153/67; PULSE 65; RESP 18; TEMP 98.5; O2SAT 94
[2017-03-04] MEDS: ASPIRIN 325 MG PO SCH (12:20)
[2017-03-04] MEDS ORDERED: OXYC5CAP3 PO (12:33)
[2017-03-04 12:41] LABS: ANION GAP 11 MEQ/L (5-15); BUN/CREATININE RATIO 24 RATIO (6-26); CHLORIDE 110 MEQ/L (98-107); CO2 - CARBON DIOXIDE 22 MEQ/L (22-30); GLOMERULAR FILTRATION RATE 44; GLUCOSE 125 MG/DL (65-110); POTASSIUM 4.8 MEQ/L (3.6-5); SODIUM 143 MEQ/L (134-144)
[2017-03-04 12:48] LABS: CREATININE 1.2 MG/DL (0.7-1.2)
[2017-03-05] MEDS ORDERED: INSULIN ASPART 100 UNIT/ML SQ SCH (07:45)
[2017-03-05] MEDS ORDERED: MILK OF MAGNESIA 30 ML SUSP PO SCH (08:00)
[2017-03-05] MEDS ORDERED: BUSPIRONE 10 MG PO SCH (09:00)
[2017-03-05] MEDS ORDERED: BISACODYL 10 MG SUPPOSITORY RECTALLY SCH (20:00)
== END 2017-03-04 15:10 | disposition home or self-care (01) ==
LOC: SCU 05:29 → SRG 05:30 → SCU 03-04 15:10
PROVIDERS: ATTEND Orthopaedic Surgery
DX: M17.11 Unilateral primary osteoarthritis, right knee (principal); I12.9 Hypertensive chronic kidney disease with stage 1 through stage 4 chronic kidney disease, or unspecified chronic kidney disease; N18.3 Chronic kidney disease, stage 3 (moderate); E11.9 Type 2 diabetes mellitus without complications; K21.9 Gastro-esophageal reflux disease without esophagitis; E78.2 Mixed hyperlipidemia; G47.00 Insomnia, unspecified; F32.9 Major depressive disorder, single episode, unspecified; F41.1 Generalized anxiety disorder; I34.1 Nonrheumatic mitral (valve) prolapse; Z79.4 Long term (current) use of insulin; Z79.899 Other long term (current) drug therapy; Z88.8 Allergy status to other drugs, medicaments and biological substances; Z90.710 Acquired absence of both cervix and uterus
CPT/HCPCS: 36415; 80053; 82948; 85025; 94762